=== PATIENT | female | born 1950 | race Caucasian/White ===

== ENCOUNTER 2019-07-09 10:39 | Outpatient (RCR) | payer MEDICARE, OTHER ==
--- NOTE | 2019-04-16 12:43 | PT INITIAL EVALUATION ---
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 Pt presents with ulcer on the lateral aspect of the R) ankle, the wound is covered with a simple bandaid. Pt reports that the wound has been present for 6 weeks. She was seen by Dr. Weeks 3 weeks prior and was referred to PT wound care. Pt reports pain and discomfort in the area of the wound, she is unsure of how she sustained the wound. REHAB PROBLEM LIST: Increased Pain, Open wound PREVIOUS MEDICAL HISTORY: h/o CVA x 26 years, L) sided hemiparesis, HTN OBJECTIVE: Wound measurement: 0.7 cm L x 1 cm W x 0.3 cm D Circumferential Measurements: R) superior to malleoli: 22.5 cm mid calf: 30.5 cm L) superior to malleoli: 24 cm mid calf: 25.5 cm ASSESSMENT: Pt with small ulcer on the R) lateral ankle, reporting pain in this area. Pt with poor capillary refill and coldness of toes on this side, faint dorsal pedal pulse is palpable. R) LE demonstrates diffuse edema, which the pt reports is new. Chronic edema of the ankle present on the L) side. Wound demonstrates 100% adhered slough. PT completed conservative, selective debridement of non-viable tissue and slough with tweezers to the depth of the subcutaneous tissue. Pt able to tolerate minimal debridement. Wound cleansed with sterile saline and gauze and then treated with therahoney followed by calcium alginate and a silicone bordered dressing to assist with autolytic debridement. Pt educated on importance of smoking cessation, as well as improved nutrition to assist with wound healing. Pt currently eats 1 meal per day, with minimal protein, fruit and vegetable intake. Pt will benefit from skilled PT wound care in order to facilitate wound healing and minimize complications. Plan to complete ABIs with future visit. Short Term Goals 1: Pt to maintain a clean, dry and intact dressing in between wound visits. 2: Wound to demonstrate 100% granulation tissue with no s&s of infection. 3: Wound to gradually epithelialize from edges inward and demonstrate 100% closure. 4: Pt to receive further education regarding proper nutrition and smoking cessation. Patient's Goals Wound healing PLAN: Patient to be seen for skilled PT wound care to include conservative, selective debridement as well as advanced wound care product selection and application to facilitate wound healing for 1x/Week for up to 90 days Thank you for this referral. If you have any questions, comments, or concerns about this report or plan, please contact me at . Guadalupe Correia, PT, DPT MTDD
--- NOTE | 2019-04-23 14:19 | NUR ---
This Physical Therapist or Ultrasonic Tester was present for the entire physical therapy session directing the services, making the skilled judgement, and was not engaged in treating another patient or doing another task at the same time as the treatment session. Addendum: 04/23/19 at 1424 by WILMER JUAREZ PT Amended: Links added.
[~2019-07-09 10:39] MED LIST: ASPI-764 PO; OXYC-373 PO; [UNRECOGNIZED DRUG - CODE] PO
--- NOTE | 2019-07-09 11:33 | PT PLAN OF CARE ---
Physician: Dr. 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 2: Wound to demonstrate 100% granulation tissue with no s&s of infection. 3: Wound to gradually epithelialize from edges inward and demonstrate 100% closure. 4: Pt to receive further education regarding proper nutrition and smoking cessation. PATIENT'S GOAL: Wound healing Status of Patient's Goals: MET Patient Compliance: Fair; pt continues to smoke Prognosis: Fair Reasons for continuing therapy: None at this time; wound appears fully healed with not current signs or symptoms of infection noted. Thank you for this referral. If you have any questions, comments, or concerns about this report or plan, please contact me at . Rodney Nathan, PT, MPT, OMS [facility]
== END 2019-07-09 13:42 | disposition home or self-care (01) ==
LOC: PT 10:39
PROVIDERS: ATTEND Family Medicine
DX: I87.311 Chronic venous hypertension (idiopathic) with ulcer of right lower extremity (principal); L97.311 Non-pressure chronic ulcer of right ankle limited to breakdown of skin
CPT/HCPCS: 97161